=== PATIENT | male | born 1995 | race Hispanic/Latino ===

== ENCOUNTER 2018-11-06 17:06 | Emergency (ER) | payer BC ==
[2018-11-06] MEDS ORDERED: dexAMETHasone 10 MG/ML VIAL ONE (17:41)
[2018-11-06] MEDS ORDERED: NA CHLORIDE 0.9% 1,000 ML ONE (17:42)
[2018-11-06] MEDS ORDERED: ONDANSETRON 4 MG/2 ML VIAL ONE (17:42)
[2018-11-06] MEDS ORDERED: MORPHINE 4 MG/ML SYR ONE (17:42)
[2018-11-06 18:05] LABS: Absolute Lymphocytes (CBC) 0.6 K/uL (0.7-4.9); Basophils % 0.4 % (0-1.3); Hematocrit 44.1 % (39.6-49.0); Lymphocytes % 5.2 % (15.3-44.8); MPV 8.8 fL (7.6-11.3); RBC Red Blood Cell Count 5.17 M/uL (4.33-5.43)
[2018-11-06 18:35] LABS: Blood Morphology Comment NOT SEEN (NOT SEEN); Platelet Estimate ADEQ; Urine White Blood Cell Casts OK
[2018-11-06 18:37] LABS: ALT/SGPT 54 U/L (12-78); AST/SGOT 30 U/L (15-37); Albumin 3.9 g/dL (3.4-5.0); Alkaline Phosphatase 112 U/L (45-117); BUN Blood Urea Nitrogen 10 mg/dL (7-18); Bicarbonate 25 mmol/L (21-32); Bilirubin Total 0.4 mg/dL (0.2-1.0); Glucose Level 141 mg/dL (74-106); Potassium 4.4 mmol/L (3.5-5.1); Protein, Total 7.8 g/dL (6.4-8.2); Sodium Level 137 mmol/L (136-145)
--- NOTE | 2018-11-06 19:51 | RAD REPORT ---
EXAM DESCRIPTION: MRI - Lumbar Spine Messi Abel - 11/06/2018 7:30 pm CLINICAL HISTORY: Back pain, history of L4-5 disc procedure performed earlier in the day COMPARISON: None. TECHNIQUE: Sagittal T1-weighted, T2-weighted and T2-STIR weighted sequences were obtained. Axial T1 -weighted and heavily T2-weighted sequenceswere obtained through the lumbar disc levels. FINDINGS: Lumbar bodies are normal in height and alignment. No suspicious marrow signal. No paraspi nal masses. Conus is normal with no clumping or thickening of the cauda equina. T12-L1 level: No significant findings. L1-2 level: No significant findings. L2-3 level: No significant findings. L3-4 level: No significant findings. L4-5 level: L4-5 disc level is desiccated with slight loss in disc height. Broad-based disc herniatio n is present across the central canal. There is flattening of thecal sac and central spinal stenosis at this level. Spinal stenosis to 7 mm noted. There are no pre-surgical or pre-procedure studies avai lable for correlation. Right laminectomy surgical changes are evident. Stranding is seen at the rebecca ectomy site and minimally along the right lateral margin of the disc and right foramen origin. No epi dural or central canal hematoma or suspicious mass. L5-S1 level: No significant findings. IMPRESSION: L4-5 surgical changes are present with right laminectomy or gaby laminectomy. There is s ome edema and stranding at the laminectomy site and along the right lateral margin of the central can al into the right exit foramen. The laminectomy and right-sided central canal findings are not outside of normal for a surgical proce dure. No central canal hematoma or mass. Patient has L4-5 disc herniation asymmetric to the right. There is central spinal stenosis present to 7 mm.
[2018-11-06 20:04] LABS: Urine Blood NEGATIVE (NEG); Urine Glucose NEGATIVE (NEG); Urine Protein NEGATIVE (NEG); Urine Specific Gravity 1.015 (1.005-1.030); Urine pH 7.5 (5.0-7.0)
--- NOTE | 2018-11-06 21:04 | ER ---
Nurse's Notes [facility] Name: Eyad Rodriguez Age: 22 yrs Sex: Male : 1995 Arrival Date: 11/06/2018 Time: 17:07 Bed 27 Private MD: Diagnosis: Sciatica, right side-L4-L5 DISC HERNIATION, RIGHT 7 MM, POST SURGICAL CHANGES Presentation: 11/06 17:09 Presenting complaint: Mother states: he had a surgery in the back this morning, after hj surgery, he is complaining og pain in his R leg and its getting hard; pain is 10/10;. Transition of care: patient was not received from another setting of care. Onset of symptoms was November 06, 2018. Risk Assessment: Do you want to hurt yourself or someone else? Patient reports no desire to harm self or others. Initial Sepsis Screen: Does the patient meet any 2 criteria? No. Patient's initial sepsis screen is negative. Does the patient have a suspected source of infection? No. Patient's initial sepsis screen is negative. Care prior to arrival: None. 17:09 Method Of Arrival: Ambulatory 17:09 Acuity: DINESH 3 hj Historical: - Allergies: 17:11 No Known Allergies; hj - PMHx: 17:11 None; hj - PSHx: 17:11 back; Appendectomy; hj - Immunization history:: Adult Immunizations up to date. - Ebola Screening: : Patient denies travel to an Ebola-affected area in the 21 days before illness onset. - Family history:: not pertinent. - Social history:: Smoking status: Patient uses tobacco products, smokes one-half pack cigarettes per day. Screenin:26 Abuse screen: Denies threats or abuse. Denies injuries from another. Nutritional aj1 screening: No deficits noted. Tuberculosis screening: No symptoms or risk factors identified. 20:07 Fall Risk None identified. No fall in past 12 months (0 pts). No secondary diagnosis (0 lc1 pts). IV access (20 points). Ambulatory Aid- None/Bed Rest/Nurse Assist (0 pts). Gait- Weak (10 pts.). Mental Status- Oriented to own ability (0 pts). Total Prakash Fall Scale indicates Low Risk Score (25-44 pts). Fall prevention measures have been instituted. Side Rails Up X 2 Frequent Obs/Assesments occuring Family Present and informed to notify staff if they need to leave bedside. Assessment: 17:26 General: Appears uncomfortable, Behavior is cooperative, crying, restless. Pain: aj1 Complains of pain in back Pain radiates to right leg. Neuro: Level of Consciousness is awake, alert, obeys commands, Oriented to person, place, time, situation. Cardiovascular: Patient's skin is warm and dry. Respiratory: Airway is patent Respiratory effort is even, unlabored, Respiratory pattern is regular, symmetrical. GI: No signs and/or symptoms were reported involving the gastrointestinal system. : No signs and/or symptoms were reported regarding the genitourinary system. EENT: No signs and/or symptoms were reported regarding the EENT system. Derm: No signs and/or symptoms reported regarding the dermatologic system. Skin is pink, warm \T\ dry. normal. Musculoskeletal: Range of motion: intact in all extremities. 18:30 Reassessment: Patient appears in no apparent distress at this time. No changes from aj1 previously documented assessment. Patient and/or family updated on plan of care and expected duration. Pain level reassessed. Patient is alert, oriented x 3, equal unlabored respirations, skin warm/dry/pink. Patient states symptoms have improved. 20:07 Reassessment: Patient and/or family updated on plan of care and expected duration. Pain lc1 level reassessed. states he feels the same, still with some pain to right leg, denies any numbness or tingling, pedal pulse 2+, family at bedside. 20:07 Neuro: Level of Consciousness is awake, alert, obeys commands, Oriented to person, lc1 place, time, situation. 21:00 Reassessment: No changes from previously documented assessment. Patient and/or family lc1 updated on plan of care and expected duration. Pain level reassessed. Patient is alert, oriented x 3, equal unlabored respirations, skin warm/dry/pink. Vital Signs: 17:11 BP 154 / 69; Pulse 103; Resp 18; Temp 98.2(O); Pulse Ox 100% on R/A; Weight 97.52 kg; hj Height 5 ft. 7 in. (170.18 cm); Pain 10/10; 18:07 BP 127 / 77; Pulse 82; Resp 18; Pulse Ox 100% on R/A; aj1 18:56 BP 134 / 67; Pulse 89; Resp 18; Pulse Ox 96% on R/A; aj1 20:00 BP 134 / 51; Pulse 72; Resp 16; Pulse Ox 97% on R/A; lc1 21:00 BP 128 / 55; Pulse 86; Resp 16; Pulse Ox 94% on R/A; lc1 17:11 Body Mass Index 33.67 (97.52 kg, 170.18 cm) ED Course: 17:07 Patient arrived in ED. rg4 17:11 Triage completed. 17:26 Gi Parmar, RN is Primary Nurse. aj1 17:26 Patient has correct armband on for positive identification. Bed in low position. Call [facility] light in reach. 17:26 No provider procedures requiring assistance completed. aj1 17:33 Javi Ramirez MD is Attending Physician. [facility] 18:06 Initial lab(s) drawn, by wi, sent to lab. Inserted saline lock: 22 gauge in right [facility] antecubital area, using aseptic technique. Blood collected. 19:12 Report given to Grisel Jade RN. [facility] 19:22 Lumbar Spine Wo Con In Process Unspecified. EDMS 20:07 Awaiting radiology results. 1 21:00 Door closed. Noise minimized. 1 22:00 Patient notified of wait time. 1 23:12 IV discontinued, bleeding controlled, Pressure dressing applied. 1 Administered Medications: 18:05 Drug: NS 0.9% 1000 ml Route: IV; Rate: 1 bolus; Site: right antecubital; 1 18:05 Drug: morphine 4 mg Route: IVP; Site: right antecubital; [facility] 18:06 Follow up: Response: RASS: Restless (+1) 1 23:15 Follow up: Response: No adverse reaction; Pain is decreased 1 18:05 Drug: Zofran 4 mg Route: IVP; Site: right antecubital; aj1 23:15 Follow up: Response: No adverse reaction [facility] 18:05 Drug: Decadron - Dexamethasone 10 mg Route: IVP; Site: right antecubital; aj1 23:16 Follow up: Response: No adverse reaction [facility] 21:10 Drug: Valium 5 mg Route: PO; [facility] 21:37 Follow up: Response: No adverse reaction lc1 Outcome: 21:03 Discharge ordered by . arnol 23:11 Discharged to home ambulatory. [facility] 23:11 Condition: good 23:11 Discharge instructions given to patient, Instructed on discharge instructions, follow up and referral plans. Demonstrated understanding of instructions, follow-up care, medications, Prescriptions given X 2, also given copy of labs and CD of MRI per Dr Saha instruction 23:14 Patient left the ED. 1 Signatures: Dispatcher [employer] EDGi Pike RN RN aj1 Javi Ramirez MD MD cha Calhoun, Lisa lc1 Mookie Saunders RN RN Deisy Mcguire rg4
--- NOTE | 2018-11-06 21:04 | EDPHYS ---
Physician Documentation [facility] Name: Eyad Rodriguez Age: 22 yrs Sex: Male : 1995 Arrival Date: 11/06/2018 Time: 17:07 Bed 27 Private MD: ED Physician Javi Ramirez HPI: 11/06 18:25 This 22 yrs old Male presents to ER via Ambulatory with complaints of Leg Pain.arnol 18:25 The patient presents with decreased range of motion, pain, swelling, tenderness. The arnol complaints affect the . 18:25 Context: The problem was sustained at an unknown site, the patient is not able to bear arnol weight. Onset: The symptoms/episode began/occurred today. Modifying factors: The symptoms are alleviated by nothing. remaining still, the symptoms are aggravated by movement. Associated signs and symptoms: The patient has no apparent associated signs or symptoms. The patient presents with pain and decreased range of motion, and swelling, and tenderness, SURGERY TODAY. The symptoms are located in the low back. Associated signs and symptoms: The patient has no apparent associated signs or symptoms. Historical: - Allergies: 17:11 No Known Allergies; hj - PMHx: 17:11 None; hj - PSHx: 17:11 back; Appendectomy; hj - Immunization history:: Adult Immunizations up to date. - Ebola Screening: : Patient denies travel to an Ebola-affected area in the 21 days before illness onset. - Family history:: not pertinent. - Social history:: Smoking status: Patient uses tobacco products, smokes one-half pack cigarettes per day. ROS: 18:25 Constitutional: Negative for fever, chills, and weight loss, Eyes: Negative for injury, arnol pain, redness, and discharge, ENT: Negative for injury, pain, and discharge, Neck: Negative for injury, pain, and swelling, Cardiovascular: Negative for chest pain, palpitations, and edema, Respiratory: Negative for shortness of breath, cough, wheezing, and pleuritic chest pain, Abdomen/GI: Negative for abdominal pain, nausea, vomiting, diarrhea, and constipation, : Negative for injury, bleeding, discharge, and swelling, MS/Extremity: Negative for injury and deformity, Skin: Negative for injury, rash, and discoloration, Neuro: Negative for headache, weakness, numbness, tingling, and seizure, Psych: Negative for depression, anxiety, suicide ideation, homicidal ideation, and hallucinations, Allergy/Immunology: Negative for hives, rash, and allergies, Endocrine: Negative for neck swelling, polydipsia, polyuria, polyphagia, and marked weight changes, Hematologic/Lymphatic: Negative for swollen nodes, abnormal bleeding, and unusual bruising. 18:25 Back: Positive for decreased range of motion, pain at rest, pain with movement, of the lumbar area. Exam: 18:25 Constitutional: This is a well developed, well nourished patient who is awake, alert, arnol and in no acute distress. Head/Face: Normocephalic, atraumatic. Eyes: Pupils equal round and reactive to light, extra-ocular motions intact. Lids and lashes normal. Conjunctiva and sclera are non-icteric and not injected. Cornea within normal limits. Periorbital areas with no swelling, redness, or edema. ENT: Nares patent. No nasal discharge, no septal abnormalities noted. Tympanic membranes are normal and external auditory canals are clear. Oropharynx with no redness, swelling, or masses, exudates, or evidence of obstruction, uvula midline. Mucous membranes moist. Neck: Trachea midline, no thyromegaly or masses palpated, and no cervical lymphadenopathy. Supple, full range of motion without nuchal rigidity, or vertebral point tenderness. No Meningismus. Chest/axilla: Normal chest wall appearance and motion. Nontender with no deformity. No lesions are appreciated. Cardiovascular: Regular rate and rhythm with a normal S1 and S2. No gallops, murmurs, or rubs. Normal PMI, no JVD. No pulse deficits. Respiratory: Lungs have equal breath sounds bilaterally, clear to auscultation and percussion. No rales, rhonchi or wheezes noted. No increased work of breathing, no retractions or nasal flaring. Abdomen/GI: Soft, non-tender, with normal bowel sounds. No distension or tympany. No guarding or rebound. No evidence of tenderness throughout. Skin: Warm, dry with normal turgor. Normal color with no rashes, no lesions, and no evidence of cellulitis. MS/ Extremity: Pulses equal, no cyanosis. Neurovascular intact. Full, normal range of motion. Psych: Awake, alert, with orientation to person, place and time. Behavior, mood, and affect are within normal limits. 18:25 Back: pain, that is moderate, ROM is painful, normal spinal alignment noted, CVA tenderness, is absent. Vital Signs: 17:11 BP 154 / 69; Pulse 103; Resp 18; Temp 98.2(O); Pulse Ox 100% on R/A; Weight 97.52 kg; hj Height 5 ft. 7 in. (170.18 cm); Pain 10/10; 18:07 BP 127 / 77; Pulse 82; Resp 18; Pulse Ox 100% on R/A; aj1 18:56 BP 134 / 67; Pulse 89; Resp 18; Pulse Ox 96% on R/A; aj1 20:00 BP 134 / 51; Pulse 72; Resp 16; Pulse Ox 97% on R/A; lc1 21:00 BP 128 / 55; Pulse 86; Resp 16; Pulse Ox 94% on R/A; lc1 17:11 Body Mass Index 33.67 (97.52 kg, 170.18 cm) MDM: 17:33 Patient medically screened. [facility] 18:25 Data reviewed: vital signs, nurses notes, lab test result(s), radiologic studies, MRI. [facility] 11/06 17:37 Order name: CBC with Diff; Complete Time: 20:06 [facility] 11/06 17:37 Order name: Comprehensive Metabolic Panel; Complete Time: 20:06 [facility] 11/06 18:10 Order name: CBC Smear Scan; Complete Time: 20:06 [facility] 11/06 18:28 Order name: Lumbar Spine Wo Con; Complete Time: 20:06 [facility] 11/06 19:05 Order name: Urine Dipstick-Ancillary; Complete Time: 20:06 [facility] 11/06 17:37 Order name: Urine Dipstick-Ancillary (obtain specimen); Complete Time: 18:25 [facility] Administered Medications: 18:05 Drug: NS 0.9% 1000 ml Route: IV; Rate: 1 bolus; Site: right antecubital; aj1 18:05 Drug: morphine 4 mg Route: IVP; Site: right antecubital; 1 18:06 Follow up: Response: RASS: Restless (+1) aj 23:15 Follow up: Response: No adverse reaction; Pain is decreased [facility] 18:05 Drug: Zofran 4 mg Route: IVP; Site: right antecubital; aj1 23:15 Follow up: Response: No adverse reaction 1 18:05 Drug: Decadron - Dexamethasone 10 mg Route: IVP; Site: right antecubital; [facility] 23:16 Follow up: Response: No adverse reaction 1 21:10 Drug: Valium 5 mg Route: PO; 1 21:37 Follow up: Response: No adverse reaction lc1 Disposition: 11/06/18 21:03 Discharged to Home. Impression: Sciatica, right side - L4-L5 DISC HERNIATION, RIGHT 7 MM, POST SURGICAL CHANGES. - Condition is Stable. - Discharge Instructions: Sciatica, Laminectomy, Care After, Sciatica, [id number], Laminectomy, Radicular Pain. - Prescriptions for dexamethasone 2 mg Oral tablet - take 1 tablet by ORAL route 2 times per day; 8 tablet. Valium 5 mg Oral Tablet - take 1 tablet by ORAL route every 8 hours As needed; 9 tablet. - Medication Reconciliation Form, Thank You Letter, Antibiotic Education, Prescription Opioid Use form. - Follow up: Private Physician; When: 2 - 3 days; Reason: Recheck today's complaints, Continuance of care, Re-evaluation by your physician. - Problem is new. - Symptoms have improved. Signatures: Dispatcher [employer] [facility] Gi Parmar RN RN aj1 Javi Ramirez MD MD cha Calhoun, Lisa 1 Mookie Saunders RN RN hj Corrections: (The following items were deleted from the chart) 21:38 19:05 URINE DIPSTICK--ANCILLARY+U.LAB.BRZ ordered. [facility] 23:14 21:03 11/06/2018 21:03 Discharged to Home. Impression: Sciatica, right side - L4-L5 lc1 DISC HERNIATION, RIGHT 7 MM, POST SURGICAL CHANGES. Condition is Stable. Forms are Medication Reconciliation Form, Thank You Letter, Antibiotic Education, Prescription Opioid Use. Follow up: Private Physician; When: 2 - 3 days; Reason: Recheck today's complaints, Continuance of care, Re-evaluation by your physician. Problem is new. Symptoms have improved. arnol
[2018-11-06] MEDS ORDERED: DIAZEPAM 5 MG TABLET ONE (21:11)
== END 2018-11-06 23:14 | disposition home or self-care (01) ==
LOC: ER 17:06
DX: M54.31 Sciatica, right side (principal); M51.26 Other intervertebral disc displacement, lumbar region; F17.210 Nicotine dependence, cigarettes, uncomplicated
CPT/HCPCS: 85025; 36415; 81003; 80053; 72148; J1100; J7030; J2405; 96374; 96375; 99284

== ENCOUNTER 2018-11-21 18:18 | Emergency (ER) | payer BC ==
[2018-11-21] MEDS ORDERED: DIAZEPAM 5 MG TABLET ONE (19:11)
[2018-11-21] MEDS ORDERED: NA CHLORIDE 0.9% 1,000 ML ONE (19:11)
[2018-11-21 19:45] LABS: Absolute Lymphocytes (CBC) 2.2 K/uL (0.7-4.9); Basophils % 0.3 % (0-1.3); Hematocrit 48.4 % (39.6-49.0); Lymphocytes % 19.6 % (15.3-44.8)
[2018-11-21 19:54] LABS: Urine Blood TRACE (NEG); Urine Glucose NEGATIVE (NEG); Urine Protein 1+ (NEG); Urine Specific Gravity >1.030 (1.005-1.030)
[2018-11-21 19:56] LABS: Barbiturates NEGATIVE (NEGATIVE); Benzodiazepines POSITIVE (NEGATIVE); Cocaine NEGATIVE (NEGATIVE); METHAMPHETAM NEGATIVE (NEGATIVE); Methadone NEGATIVE (NEGATIVE); Opiates NEGATIVE (NEGATIVE); Phencyclidine NEGATIVE (NEGATIVE); THC Cannibis POSITIVE (NEGATIVE)
[2018-11-21 19:59] LABS: BUN Blood Urea Nitrogen 6 mg/dL (7-18); Bicarbonate 26 mmol/L (21-32); Glucose Level 96 mg/dL (74-106); Potassium 3.5 mmol/L (3.5-5.1); Sodium Level 141 mmol/L (136-145)
--- NOTE | 2018-11-21 20:07 | EDPHYS ---
Physician Documentation [facility] Name: Eyad Rodriguez Age: 22 yrs Sex: Male : 1995 Arrival Date: 11/21/2018 Time: 18:22 Bed 15 Private MD: ED Physician Gt Larios HPI: 11/21 19:47 This 22 yrs old Male presents to ER via Ambulatory with complaints of kb withdrawals. 19:51 The patient complains of pain to the forehead. The patient describes the headache as kb constant. Onset: The symptoms/episode began/occurred yesterday. Associated signs and symptoms: Pertinent positives: no appetite, insomnia. Severity of symptoms: At its worst the pain was moderate, in the emergency department the pain is unchanged. Headache History: Denies prior headaches. The symptoms are alleviated by nothing. the symptoms are aggravated by nothing. The patient has not experienced similar symptoms in the past. The patient has not recently seen a physician. Pt reports he thinks he is withdrawing from his pain killers. States he was taking tramadol for a year until 11/06/18 and then started taking tylenol with codeine that day. was taking 2 every 4 hours and stopped 2 days ago. Woke up with a headache yesterday morning. . Historical: - Allergies: 18:33 No Known Allergies; la1 - Home Meds: 18:33 amlodipine 10 mg tab 1 tab once daily [Active]; trazodone 50 mg Oral tab 1 tab la1 [Active]; sertraline 50 mg oral tab 1 tab once daily [Active]; Flexeril 10 mg Oral tab 1 tab [Active]; - PMHx: 18:33 Hypertension; la1 - Immunization history:: Adult Immunizations up to date. - Social history:: Smoking status: Patient uses tobacco products, smokes one-half pack cigarettes per day. - Ebola Screening: : No symptoms or risks identified at this time. ROS: 19:44 Neck: Negative for injury, pain, and swelling, Cardiovascular: Negative for chest pain, kb palpitations, and edema, Respiratory: Negative for shortness of breath, cough, wheezing, and pleuritic chest pain, Abdomen/GI: Negative for abdominal pain, nausea, vomiting, diarrhea, and constipation, Back: Negative for injury and pain, : Negative for injury, bleeding, discharge, and swelling, MS/Extremity: Negative for injury and deformity, Skin: Negative for injury, rash, and discoloration. 19:44 Constitutional: Positive for fatigue, malaise, poor PO intake, Negative for body aches, chills, fever, weight loss. 19:44 Neuro: Positive for headache. Exam: 19:44 Constitutional: This is a well developed, well nourished patient who is awake, alert, kb and in no acute distress. Head/Face: Normocephalic, atraumatic. ENT: Nares patent. No nasal discharge, no septal abnormalities noted. Tympanic membranes are normal and external auditory canals are clear. Oropharynx with no redness, swelling, or masses, exudates, or evidence of obstruction, uvula midline. Mucous membranes moist. Neck: Trachea midline, no thyromegaly or masses palpated, and no cervical lymphadenopathy. Supple, full range of motion without nuchal rigidity, or vertebral point tenderness. No Meningismus. Chest/axilla: Normal chest wall appearance and motion. Nontender with no deformity. No lesions are appreciated. Cardiovascular: Regular rate and rhythm with a normal S1 and S2. No gallops, murmurs, or rubs. Normal PMI, no JVD. No pulse deficits. Respiratory: Lungs have equal breath sounds bilaterally, clear to auscultation and percussion. No rales, rhonchi or wheezes noted. No increased work of breathing, no retractions or nasal flaring. Abdomen/GI: Soft, non-tender, with normal bowel sounds. No distension or tympany. No guarding or rebound. No evidence of tenderness throughout. Skin: Warm, dry with normal turgor. Normal color with no rashes, no lesions, and no evidence of cellulitis. MS/ Extremity: Pulses equal, no cyanosis. Neurovascular intact. Full, normal range of motion. Neuro: Awake and alert, GCS 15, oriented to person, place, time, and situation. Cranial nerves II-XII grossly intact. Motor strength 5/5 in all extremities. Sensory grossly intact. Cerebellar exam normal. Normal gait. Vital Signs: 18:33 BP 151 / 100; Pulse 115; Resp 16; Temp 97.5; Pulse Ox 98% on R/A; Weight 99.79 kg; la1 Height 5 ft. 6 in. (167.64 cm); 19:30 BP 155 / 66; Pulse 100; Resp 17; Temp 97.6; Pulse Ox 99% on R/A; rr5 20:20 BP 137 / 66; Pulse 95; Resp 17; Pulse Ox 99% on R/A; rr5 18:33 Body Mass Index 35.51 (99.79 kg, 167.64 cm) la1 Suzie Coma Score: 20:05 Eye Response: spontaneous(4). Verbal Response: oriented(5). Motor Response: obeys kb commands(6). Total: 15. MDM: 18:40 Patient medically screened. kb 19:47 Data reviewed: vital signs, nurses notes. Data interpreted: Pulse oximetry: on room air kb is 99 %. Interpretation: normal. 19:57 ED course: pt denies overdosing or taking more sertraline than prescribed. . kb 20:05 Counseling: I had a detailed discussion with the patient and/or guardian regarding: the kb historical points, exam findings, and any diagnostic results supporting the discharge/admit diagnosis, lab results, the need for outpatient follow up, a family practitioner, to return to the emergency department if symptoms worsen or persist or if there are any questions or concerns that arise at home. 11/21 18:55 Order name: CBC with Diff; Complete Time: 19:49 kb 11/21 18:55 Order name: Basic Metabolic Panel; Complete Time: 20:05 kb 11/21 18:55 Order name: UDS; Complete Time: 19:58 kb 11/21 19:40 Order name: Urine Dipstick--Ancillary (enter results); Complete Time: 19:56 ar5 11/21 18:55 Order name: IV; Complete Time: 19:08 kb Administered Medications: 19:20 Drug: Valium 5 mg Route: PO; rr5 20:20 Follow up: Response: No adverse reaction rr5 19:25 Drug: NS 0.9% 1000 ml Route: IV; Rate: 1000 ml; Site: right forearm; rr5 20:22 Follow up: Response: No adverse reaction; IV Status: Completed infusion; IV Intake: rr5 1000ml Disposition: 11/21/18 20:06 Discharged to Home. Impression: Headache. - Condition is Stable. - Discharge Instructions: Opioid Withdrawal, General Headache Without Cause, Hola-[id number]. - Medication Reconciliation Form, Thank You Letter, Antibiotic Education, Prescription Opioid Use form. - Follow up: Emergency Department; When: As needed; Reason: Worsening of condition. Follow up: Private Physician; When: 2 - 3 days; Reason: Recheck today's complaints, Continuance of care, Re-evaluation by your physician. Signatures: Dispatcher [employer] EDAZ Mary Bowen, PRODUCTION DISPATCHER-C JO-Edgar Salas RN RN la1 Deepak Carrillo RN RN rr5 Corrections: (The following items were deleted from the chart) 20:27 20:06 11/21/2018 20:06 Discharged to Home. Impression: Headache. Condition is Stable. rr5 Forms are Medication Reconciliation Form, Thank You Letter, Antibiotic Education, Prescription Opioid Use. Follow up: Emergency Department; When: As needed; Reason: Worsening of condition. Follow up: Private Physician; When: 2 - 3 days; Reason: Recheck today's complaints, Continuance of care, Re-evaluation by your physician. kb
--- NOTE | 2018-11-21 20:07 | ER ---
Nurse's Notes [facility] Name: Eyad Rodriguez Age: 22 yrs Sex: Male : 1995 Arrival Date: 11/21/2018 Time: 18:22 Bed 15 Private MD: Diagnosis: Headache Presentation: 11/21 18:31 Presenting complaint: Patient states: I feel like I am withdrawing from T3 and la1 tramadol. I took tramadol for about a year and stopped a couple weeks ago, I took T3 since November 06 and last dose was two days ago. I have been having a ROSE and getting cold sweats. Transition of care: patient was not received from another setting of care. Onset of symptoms was November 21, 2018. Risk Assessment: Do you want to hurt yourself or someone else? Patient reports no desire to harm self or others. Initial Sepsis Screen: Does the patient meet any 2 criteria? No. Patient's initial sepsis screen is negative. Does the patient have a suspected source of infection? No. Patient's initial sepsis screen is negative. Care prior to arrival: None. 18:31 Method Of Arrival: Ambulatory la1 18:31 Acuity: DINESH 3 la1 Triage Assessment: 19:00 General: Appears in no apparent distress. Behavior is calm, cooperative, crying. rr5 Historical: - Allergies: 18:33 No Known Allergies; la1 - Home Meds: 18:33 amlodipine 10 mg tab 1 tab once daily [Active]; trazodone 50 mg Oral tab 1 tab la1 [Active]; sertraline 50 mg oral tab 1 tab once daily [Active]; Flexeril 10 mg Oral tab 1 tab [Active]; - PMHx: 18:33 Hypertension; la1 - Immunization history:: Adult Immunizations up to date. - Social history:: Smoking status: Patient uses tobacco products, smokes one-half pack cigarettes per day. - Ebola Screening: : No symptoms or risks identified at this time. Screenin:36 Abuse screen: Denies threats or abuse. Denies injuries from another. Nutritional rr5 screening: No deficits noted. Tuberculosis screening: No symptoms or risk factors identified. Fall Risk IV access (20 points). Total Prakash Fall Scale indicates No Risk (0-24 pts). Assessment: 19:00 General: Appears in no apparent distress. uncomfortable, Behavior is calm, cooperative, rr5 crying, Reports feeling uneasy. 19:00 Pain: Denies pain. Neuro: Level of Consciousness is awake, alert, obeys commands, rr5 Oriented to person, place, time, situation, Appropriate for age. Cardiovascular: Capillary refill < 3 seconds Patient's skin is warm and dry. Respiratory: Airway is patent Respiratory effort is even, unlabored, Respiratory pattern is regular, symmetrical. GI: No signs and/or symptoms were reported involving the gastrointestinal system. : No signs and/or symptoms were reported regarding the genitourinary system. EENT: No signs and/or symptoms were reported regarding the EENT system. Derm: Skin is intact, Skin temperature is warm. Musculoskeletal: Circulation, motion, and sensation intact. Capillary refill < 3 seconds. 20:10 Reassessment: for discharge awaiting for IV fluid to consume. rr5 20:30 Reassessment: Patient appears in no apparent distress at this time. Patient is alert, rr5 oriented x 3, equal unlabored respirations, skin warm/dry/pink. discharge instruction given and explained without complaints made. assisted by christian science healer advised not to drive. Patient states feeling better. Patient states symptoms have improved. Vital Signs: 18:33 BP 151 / 100; Pulse 115; Resp 16; Temp 97.5; Pulse Ox 98% on R/A; Weight 99.79 kg; la1 Height 5 ft. 6 in. (167.64 cm); 19:30 BP 155 / 66; Pulse 100; Resp 17; Temp 97.6; Pulse Ox 99% on R/A; rr5 20:20 BP 137 / 66; Pulse 95; Resp 17; Pulse Ox 99% on R/A; rr5 18:33 Body Mass Index 35.51 (99.79 kg, 167.64 cm) la1 Suzie Coma Score: 20:05 Eye Response: spontaneous(4). Verbal Response: oriented(5). Motor Response: obeys kb commands(6). Total: 15. ED Course: 18:22 Patient arrived in ED. mr 18:32 Triage completed. la1 18:33 Arm band placed on right wrist. la1 18:34 Mookie Saunders RN is Primary Nurse. hj 18:40 [facility] kb 18:40 Gt Larios MD is Attending Physician. kb 19:00 Patient has correct armband on for positive identification. Bed in low position. Call rr5 light in reach. Side rails up X2. 19:25 Inserted saline lock: 20 gauge in right forearm, using aseptic technique. Blood rr5 collected. 19:30 UDS Sent. jb5 19:30 Basic Metabolic Panel Sent. jb5 19:30 CBC with Diff Sent. jb5 20:30 No provider procedures requiring assistance completed. IV discontinued, intact, rr5 bleeding controlled, No redness/swelling at site. Pressure dressing applied. Administered Medications: 19:20 Drug: Valium 5 mg Route: PO; rr5 20:20 Follow up: Response: No adverse reaction rr5 19:25 Drug: NS 0.9% 1000 ml Route: IV; Rate: 1000 ml; Site: right forearm; rr5 20:22 Follow up: Response: No adverse reaction; IV Status: Completed infusion; IV Intake: rr5 1000ml Intake: 20:22 IV: 1000ml; Total: 1000ml. rr5 Outcome: 20:06 Discharge ordered by . kb 20:25 Discharged to home ambulatory, with family. rr5 20:25 Condition: stable 20:25 Discharge instructions given to patient, Instructed on discharge instructions, follow up and referral plans. Demonstrated understanding of instructions, follow-up care. 20:27 Patient left the ED. rr5 Signatures: Mary Bowen, COMPUTER SYSTEM TECHNICIAN-C COMPUTER SYSTEM TECHNICIAN-Geoff Matilda BirminghamEdgar RN RN la1 Mookie Saunders, RN Leah Cheung jb5 Deepak Carrillo RN RN rr5
== END 2018-11-21 20:27 | disposition home or self-care (01) ==
LOC: ER 18:18
DX: R51 Headache (principal); I10 Essential (primary) hypertension; F17.210 Nicotine dependence, cigarettes, uncomplicated
CPT/HCPCS: 85025; 80048; 36415; 80307 ×8; 81003; J7030; 96360; 99283